=== PATIENT | female | born 1995 | race Caucasian/White ===

== ENCOUNTER 2016-03-06 04:36 | Emergency (ER) | payer BC, OTHER ==
[~2016-03-06] VITALS: Ht 154.9 cm; Wt 98.9 kg
[2016-03-06 04:41] VITALS: TEMP 36.9; Ht 154.9 cm; Wt 98.9 kg
[2016-03-06] MEDS ORDERED: KETOROLAC TROMETHAMINE 60 MG/2 ML VIAL IM STA (04:59)
[2016-03-06] MEDS ORDERED: DiphenhydrAMINE HCL 50 MG/ML VIAL IM STA (04:59)
[2016-03-06] MEDS ORDERED: PROCHLORPERAZINE 5 MG/ML 2 ML VIAL IV STA (04:59)
[2016-03-06] MEDS ORDERED: ACET500C14 PO (05:07)
[2016-03-06 05:19] VITALS: BP 121/73; PULSE 70; O2SAT 97
--- NOTE | 2016-03-06 05:25 | EMERGENCY ROOM VISIT NOTE ---
ED Visit Note First contact with patient: 04:46 CHIEF COMPLAINT: Migraine headache HISTORY OF PRESENT ILLNESS: This 20-year-old female patient presented to the emergency department with a gradual onset of a severe generalized headache that started 72 hours ago. The patient states the migraine is similar to their typical migraines. She lives in [place], and is visiting locally. She typically takes [id number] medication with relief, but this has not worked is normal. There has been associated photophobia, phonophobia, nausea and vomiting. The patient denies fever or chills recently, and there is no weakness or numbness of the extremities. There is no difficulty with speech or vision. No trauma to the head and no neck pain. The pain is severe, constant, and it is slowly increasing in severity. The patient rates the pain as dull and 8/10. This is not the worst headache of the life and is similar to previous migraines. Previous imaging studies of the brain have been normal. She denies chance of . REVIEW OF SYSTEMS: A review of systems was performed with positives and pertinent negatives listed in the history of present illness. All other systems were reviewed and are negative. ALLERGIES: Cefuroxime MEDICATIONS: No chronic medications PMH: History of migraines SOCIAL HISTORY: Visiting locally. Lives in [facility]. PHYSICAL EXAM: Vital Signs: Reviewed Nurse's notes, vital signs stable. GENERAL: White female, who appears in pain, but non toxic in appearance and in no acute distress. MENTAL STATUS: Alert, oriented, and coherent. HEENT: Normocephalic. PERRLA. EOMI. Nares patent without nuchal rigidity. Tympanic membranes pearly mejia without erythema or effusion bilaterally. Mucous membranes moist. NECK: Supple, no nuchal rigidity, nontender, no lymphadenopathy. HEART: Regular rhythm and normal rate without murmurs, ectopy, gallops, or rubs. LUNGS: Clear to auscultation bilaterally without wheezes, rales or rhonchi. No dullness to percussion. No accessory muscle use. No retractions. SKIN: Normal. NEUROLOGICAL: Pupils are round, equal and react to light. The optic fundi are normal and the discs are flat. The patient moves all extremities well and the gait is normal. EMERGENCY DEPARTMENT COURSE: I examined the patient. She appears to have a normal migraine headache. Evidently she does have an aura when she stares at objects. She states this is normal for her and consistent with previous migraines. This is not the worse headache of her life. She does not appear with signs of meningitis or encephalitis. I discussed options of care with the patient, who has reportedly had migraines her whole life. The patient will be given 60 mg IM Toradol, 10 mg IM Compazine, 25 mg IM Benadryl for her symptoms. I did recommend that she follow with her primary care physician as soon as possible for further care and management. She is otherwise to go home and rest. She was invited back to the ER with any new, worsening, or concerning symptoms, and voiced understanding of this plan. The differential diagnosis includes acute intracranial bleed, meningitis, encephalitis, mass or mass effect, sinusitis, infection, tumor, headache, temporal arteritis and carbon monoxide exposure, and migraine. The patient was discharged home in stable condition accompanied by her boyfriend with a taxi driving. Current/Historical Medications Scheduled PRN Acetaminophen (Extra Strength Acetaminop), 500-1,000 MG PO DIRECTED PRN for Headache Allergies Coded Allergies: Cefuroxime (Unverified Allergy, Unknown, rash, 03/06/16) Vital Signs Date Time Temp Pulse Resp B/P Pulse Ox O2 Delivery O2 Flow Rate FiO2 03/06/16 04:41 36.9 78 18 149/86 99 Room Air Medications Administered Medications (Trade) Dose Ordered Sig/Ginna Route Start Time Stop Time Status Last Admin Dose Admin Diphenhydramine HCl (Benadryl Inj) 25 mg NOW STAT IM 03/06/16 04:59 03/06/16 05:00 DC 03/06/16 05:07 25 MG Prochlorperazine Edisylate (Compazine Inj) 10 mg NOW STAT IV 03/06/16 04:59 03/06/16 05:00 DC 03/06/16 05:07 10 MG Ketorolac Tromethamine (Toradol Inj) 60 mg NOW STAT IM 03/06/16 04:59 03/06/16 05:00 DC 03/06/16 05:08 60 MG Departure Information Impression Primary Impression: Migraine with aura Dispostion Home / Self-Care Condition GOOD Forms HOME CARE DOCUMENTATION FORM, IMPORTANT VISIT INFORMATION Patient Instructions A Signature Page, [facility] Additional Instructions You were seen and evaluated today on an emergency basis only. This is not a substitute for, or an effort to provide, complete comprehensive medical care. It is not possible to recognize and treat all injuries or illnesses in a single emergency department visit. For this reason it is recommended that you followup with your primary care physician this week for ongoing care and evaluation. DO NOT drive, drink alcohol, operate machinery, or perform dangerous activities today. You were given medications in the ER that can affect your ability to safely function or operate a vehicle. Rest today in a quiet, peaceful, dark environment and get a full 8-10 hrs of sleep tonight. Avoid loud noises, smoke/smoking, alcohol, bright lights, stress, or physical exertion today to minimize the chance the headache may return. Continue current medications. Ibuprofen(Motrin, Advil) may be used for fever or pain. Use 600mg every six hours as needed. Take with food. Avoid using more than 2400mg in a 24 hour period. Do not use 2400mg per day for more than three consecutive days without physician direction. Prolonged inappropriate use can lead to stomach upset or ulcers. (AND/OR) Acetaminophen(Tylenol) may be used for fever or pain. Use 1000mg every six hours as needed. Avoid using more than 4000mg in a 24 hour period. Return to the ER for passing out, worsening headache, vision problems, neck stiffness/pain, fevers, vomiting, worsening of your condition, or as needed.
== END 2016-03-06 05:20 | disposition home or self-care (01) ==
LOC: C.EDB 04:37
DX: G43.109 Migraine with aura, not intractable, without status migrainosus (principal)

== ENCOUNTER 2017-01-14 14:44 | Emergency (ER) | payer BC ==
[~2017-01-14] VITALS: Ht 157.5 cm; Wt 103.2 kg
[~2017-01-14 14:44] MED LIST: ACET500C14 PO
[2017-01-14 14:47] VITALS: TEMP 37.3; Ht 157.5 cm; Wt 103.2 kg
[2017-01-14] MEDS ORDERED: ONDANSETRON INJ 2 MG/ML 2 ML VIAL IV STA (15:02)
[2017-01-14 15:45] LABS: BASO % 0.7 %; BASO ABS # 0.04 K/uL (0-0.2); COMPLETE YES; EOS % 2.2 %; HEMATOCRIT 37.2 % (37-47); IG% 0.2 %; LYMPH % 29.1 %; LYMPH ABS # 1.61 K/uL (1.2-3.4); MEAN CELL VOLUME 86.9 fL (80-100); MEAN CORPUSCULAR HEMOGLOBIN 29.7 pg (25-34); MEAN CORPUSCULAR HGB CONC 34.1 g/dl (32-36); MEAN PLATELET VOLUME 10.8 fL (7.4-10.4); MONO % 8.5 %; NEUT % 59.3 %; PLATELET COUNT 262 K/uL (130-400); RED BLOOD COUNT 4.28 M/uL (4.2-5.4); WHITE BLOOD COUNT 5.53 K/uL (4.8-10.8)
[2017-01-14 15:51] LABS: URINE APPEARANCE CLOUDY (CLEAR); URINE COLOR DK YELLOW; URINE EPITHELIAL CELL AUTO >30 /lpf (0-5); URINE NITRITE NEG (NEG); URINE SPECIFIC GRAVITY 1.029 (1.000-1.030); UROBILINOGEN NEG (NEG); ZZUR CULT IF INDIC CLEAN CATCH YES
[2017-01-14 15:55] LABS: REVIEW REQ? YES
[2017-01-14 15:57] LABS: BUN/CREATININE RATIO 11.9 (10-20); CALCIUM 9.2 mg/dl (8.5-10.1); CREATININE 0.59 mg/dl (0.60-1.20); POTASSIUM 3.6 mmol/L (3.5-5.1)
[2017-01-14 15:57] LABS: MANUAL MICROSCOPIC REQUIRED? NO; URINE BILIRUBIN NEG (NEG)
--- NOTE | 2017-01-14 15:57 | DIAGNOSTIC IMAGING REPORT ---
PA CHEST RADIOGRAPH AND UPRIGHT AND SUPINE AP RADIOGRAPHS OF THE ABDOMEN CLINICAL HISTORY: Nausea and vomiting. COMPARISON STUDY: No previous studies for comparison. FINDINGS: Lung volumes are normal. Lungs are clear. No pneumothorax or pleural effusion is present. Pulmonary vascularity is normal. Cardiomediastinal silhouette is normal. No free air is present. The bowel gas pattern is normal. IMPRESSION: 1. No free air or evidence of bowel obstruction. 2. No acute cardiopulmonary findings. Electronically signed by: Lee Wilkes M.D. 01/14/2017 3:56 PM Dictated Date/Time: 01/14/2017 3:55 PM
[2017-01-14 16:03] LABS: PREG INTERNAL NEGATIVE QC NEG CLEAR BACKGROUND; PREG INTERNAL POSITIVE QC POS CONTROL LINE
[2017-01-14 16:07] LABS: ALB/GLOB RATIO 1.1 (0.9-2); THYROID STIMULATING HORMONE 1.03 uIu/ml (0.300-4.500)
[2017-01-14] MEDS ORDERED: ONDA4TAB10 SL (16:37)
--- NOTE | 2017-01-14 16:40 | EMERGENCY ROOM VISIT NOTE ---
History First contact with patient: 14:51 Chief Complaint: VOMITING Stated Complaint: THROWING UP FOR A MONTH (NOT ) History of Present Illness The patient is a 21 year old female who presents to the Emergency Room with complaints of persistent vomiting over the past one month. The patient states that approximately one month ago, she woke up in the middle of the night vomiting. She states that for 2 weeks after that, she became nauseous when overheated. The past 2 weeks, her symptoms have worsened. She has had a dry mouth and has been weak and shaky. She has been vomiting 3-4 times per day. She reports a decreased appetite. She has been alternating between constipation and diarrhea. Her urine has been dark in color despite increasing fluid intake. She has been having headaches which she feels are due to not eating or drinking enough. She does not have a primary care provider. The patient states that her last period was approximately one month ago. She did take a urine test one week ago which was negative. She denies abdominal pain. She denies any history of similar symptoms. Review of Systems A complete 10 point review of systems was reviewed with the patient with pertinent positives and negatives as per history of present illness. All else were negative. Social History Smoking Status: Never Smoker Current/Historical Medications Scheduled Ondasetron Odt (Zofran Odt), 4 MG SL Q6H Scheduled PRN Acetaminophen (Extra Strength Acetaminop), 500-1,000 MG PO DIRECTED PRN for Headache Physical Exam Vital Signs Date Time Temp Pulse Resp B/P (MAP) Pulse Ox O2 Delivery O2 Flow Rate FiO2 01/14/17 17:00 84 16 155/78 99 01/14/17 14:47 37.3 88 16 155/84 99 Room Air Physical Exam VITALS: Vitals are noted on the nurse's note and reviewed by myself. Vital signs stable. GENERAL: This is a 21-year-old female, in no acute distress, nondiaphoretic, well-developed well-nourished. HEAD: Normocephalic atraumatic. EARS: External auditory canals clear, tympanic membranes pearly mejia without erythema or effusion bilaterally. EYES: Pupils equal round and reactive to light and accommodation. Conjunctivae without injection, sclerae without icterus. MOUTH: Mucous membranes moist. Tonsils are not enlarged. Pharynx without erythema or exudate. HEART: Regular rate and rhythm without murmurs gallops or rubs. LUNGS: Clear to auscultation bilaterally without wheezes, rales or rhonchi. ABDOMEN: Positive bowel sounds x 4. Soft, nontender to palpation. NEURO: Patient was alert and oriented to person place and time. Medical Decision & Procedures Laboratory Results 01/14/17 15:13 Red Blood Count 4.28, Mean Corpuscular Volume 86.9, Mean Corpuscular Hemoglobin 29.7, Mean Corpuscular Hemoglobin Concent 34.1, Mean Platelet Volume 10.8, Neutrophils (%) (Auto) 59.3, Lymphocytes (%) (Auto) 29.1, Monocytes (%) (Auto) 8.5, Eosinophils (%) (Auto) 2.2, Basophils (%) (Auto) 0.7, Neutrophils # (Auto) 3.28, Lymphocytes # (Auto) 1.61, Monocytes # (Auto) 0.47, Eosinophils # (Auto) 0.12, Basophils # (Auto) 0.04 01/14/17 15:13 Test 01/14/17 15:13 01/14/17 15:20 White Blood Count 5.53 K/uL (4.8-10.8) Red Blood Count 4.28 M/uL (4.2-5.4) Hemoglobin 12.7 g/dL (12.0-16.0) Hematocrit 37.2 % (37-47) Mean Corpuscular Volume 86.9 fL (80-100) Mean Corpuscular Hemoglobin 29.7 pg (25-34) Mean Corpuscular Hemoglobin Concent 34.1 g/dl (32-36) Platelet Count 262 K/uL (130-400) Mean Platelet Volume 10.8 fL (7.4-10.4) Neutrophils (%) (Auto) 59.3 % Lymphocytes (%) (Auto) 29.1 % Monocytes (%) (Auto) 8.5 % Eosinophils (%) (Auto) 2.2 % Basophils (%) (Auto) 0.7 % Neutrophils # (Auto) 3.28 K/uL (1.4-6.5) Lymphocytes # (Auto) 1.61 K/uL (1.2-3.4) Monocytes # (Auto) 0.47 K/uL (0.11-0.59) Eosinophils # (Auto) 0.12 K/uL (0-0.5) Basophils # (Auto) 0.04 K/uL (0-0.2) RDW Standard Deviation 41.3 fL (36.4-46.3) RDW Coefficient of Variation 13.0 % (11.5-14.5) Immature Granulocyte % (Auto) 0.2 % Immature Granulocyte # (Auto) 0.01 K/uL (0.00-0.02) Anion Gap 10.0 mmol/L (3-11) Est Creatinine Clear Calc Drug Dose 167.0 ml/min Estimated GFR () 149.7 Estimated GFR (Non- 129.2 BUN/Creatinine Ratio 11.9 (10-20) Calcium Level 9.2 mg/dl (8.5-10.1) Total Bilirubin 0.8 mg/dl (0.2-1) Aspartate Amino Transf (AST/SGOT) 16 U/L (15-37) Alanine Aminotransferase (ALT/SGPT) 37 U/L (12-78) Alkaline Phosphatase 72 U/L (45-117) Total Protein 7.6 gm/dl (6.4-8.2) Albumin 4.0 gm/dl (3.4-5.0) Globulin 3.6 gm/dl (2.5-4.0) Albumin/Globulin Ratio 1.1 (0.9-2) Lipase 66 U/L (73-393) Thyroid Stimulating Hormone (TSH) 1.030 uIu/ml (0.300-4.500) Human Chorionic Gonadotropin, Qual POS (NEG) Urine Color DK YELLOW Urine Appearance CLOUDY (CLEAR) Urine pH 7.0 (4.5-7.5) Urine Specific [place] 1.029 (1.000-1.030) Urine Protein NEG (NEG) Urine Glucose (UA) NEG (NEG) Urine Ketones 3+ (NEG) Urine Occult Blood TRACE (NEG) Urine Nitrite NEG (NEG) Urine Bilirubin NEG (NEG) Urine Urobilinogen NEG (NEG) Urine Leukocyte Esterase TRACE (NEG) Urine WBC (Auto) 1-5 /hpf (0-5) Urine RBC (Auto) 0-4 /hpf (0-4) Urine Hyaline Casts (Auto) 5-10 /lpf (0-5) Urine Epithelial Cells (Auto) >30 /lpf (0-5) Urine Bacteria (Auto) 2+ (NEG) Medications Administered Medications (Trade) Dose Ordered Sig/Ginna Route Start Time Stop Time Status Last Admin Dose Admin Ondansetron HCl (Zofran Inj) 4 mg NOW STAT IV 01/14/17 15:02 01/14/17 15:04 DC 01/14/17 15:19 4 MG Medical Decision Differential diagnosis includes bowel obstruction, colitis, anxiety, , urinary tract infection, pyelonephritis, cholecystitis, among others. The patient was evaluated as above. She was given Zofran for her nausea which helped. Labs revealed no leukocytosis or anemia. No concerning electrolyte abnormalities. Serum was found to be positive. Patient was informed of her . She was advised to follow-up with [facility] just given a prescription for Zofran. She was instructed to take vitamin. Urinalysis did suggest contamination vs infection and will be sent for culture. The patient verbalized understanding of my assessment and treatment plan was discharged home in good condition. Medication Reconcilliation Current Medication List: was personally reviewed by me Blood Pressure Screening Patient's blood pressure: Elevated blood pressure Blood pressure disposition: Elevated BP felt to be situational Impression Primary Impression: Departure Information Dispostion Home / Self-Care Condition GOOD Prescriptions Ondasetron Odt (ZOFRAN ODT) 4 Mg Tab 4 MG SL Q6H for Nausea, #20 TAB Prov: Neema Hartman PA-C 01/14/17 Referrals No Doctor, Assigned (PCP) Esme Madera M.D.(MA[employer]GER [employer]) [facility] Additional Instructions Based on when you believe your last period was, you are currently approximately 6 weeks . You have been prescribed Zofran to be used for any nausea or vomiting. Take as prescribed. Tylenol as needed for pain. You should avoid taking any Advil while . Start a vitamin which you may find [id number]. Follow-up with [facility]. Call for appointment. Return to the emergency department with any vaginal bleeding, increased vomiting , abdominal pain or any other new/concerning symptoms. Problem Qualifiers Primary Impression: Weeks of gestation: less than 8 weeks Qualified Codes: Z3A.01 - Less than 8 weeks gestation of
[2017-01-14 17:00] VITALS: BP 155/78; PULSE 84; O2SAT 99
== END 2017-01-14 17:02 | disposition home or self-care (01) ==
LOC: C.EDB 14:45
DX: Z34.91 Encounter for supervision of normal pregnancy, unspecified, first trimester (principal); Z3A.01 Less than 8 weeks gestation of pregnancy